=== PATIENT | male | born 1965 | race Caucasian/White ===

== ENCOUNTER → 2020-06-04 | Outpatient (CLI) | payer BC ==
[~2020-06-04] MED LIST: ALLERGY INJ; AMBIEN 10MG10 MG PO; CEPHALEXIN500 M1 PO; CLARITIN 1010 MG/TAB PO; LORTAB 5/500 501 TAB PO; MOTRIN 600600 MG/TAB PO; PERCOCET 325 MG1 TA2 PO; PROVENTIL0.09 MG/A1 IH; SEPTRA DS 8001 TAB PO; SLEEPING AID25 MG; TYLENOL/CODEINE1 ML PO; ZITHROMAX Z PA250 MG PO
== END ==
LOC: ZCOL.LAB 15:52
DX: Z20.828 Contact with and (suspected) exposure to other viral communicable diseases (principal)

== ENCOUNTER 2024-05-01 06:12 | Emergency (ER) | payer BC ==
[~2024-05-01] VITALS: Ht 182.9 cm; Wt 79.5 kg
[~2024-05-01 06:12] MED LIST changes: +NORCO 325 MG-51 TAB PO; +PROTONIX 40MG T40 MG PO; +ULTRAM 50MG TAB50 MG PO
[2024-05-01 06:20] VITALS: TEMP 98.4
[2024-05-01] MEDS ORDERED: DOXYCYCLINE 10100 MG PO (06:20)
[2024-05-01 07:08] VITALS: BP 160/80; PULSE 79
== END 2024-05-01 07:15 | disposition home or self-care (01) ==
LOC: COL.ER 06:12
DX: J32.9 Chronic sinusitis, unspecified (principal); J40 Bronchitis, not specified as acute or chronic